=== PATIENT | male | born 1985 | race Two or more races ===

== ENCOUNTER 2019-04-01 08:32 | Emergency (ER) | payer OTHER ==
--- NOTE | 2019-04-01 08:54 | EDPHY ---
General Time Seen by Provider: 04/01/19 08:54 Narrative: CLINICAL IMPRESSION: Cough, URI ASSESSMENT/PLAN: Patient is a 33-year-old male with no significant medical history who presents to the emergency department with runny nose, congestion, cough and an isolated episode of scant reported blood in his sputum. Patient is afebrile, he is not toxic appearing and in no acute distress. His vital signs were reviewed, no findings to suggest sepsis. Chest x-ray with no evidence of consolidation or other cardiopulmonary abnormality. History and physical examination is most consistent with upper respiratory infection and cough. I suspect that his isolated subjective report of scant blood in his sputum was related to inflammation, I have a very low suspicion for other etiologies to include pulmonary embolus. Well's 1, low risk. Discussed laboratory studies and imaging, patient refuses. There is no evidence of significant sinusitis, meningitis, pneumonia or serious bacterial illness. As symptoms have been ongoing for a week, will treat with a Z-Ciro, he is established at [facility] and will call to schedule follow-up in 2-3 days. Conservative return precautions discussed. CHIEF COMPLAINT: Cough, blood tinged sputum HPI: Patient is a 33-year-old male with no significant medical history who presents to the emergency department with complaints of ongoing dry cough for 1 week, runny nose and congestion. Patient reports his baby 1st became ill with similar symptoms, became sick and now he has been sick for the last week. Patient reports that he was feeling mildly better, went for a run yesterday and felt winded at that time. Patient reports this morning he had a speck of blood in his sputum after he coughed twice, he has coughed since and had clear mucous. He reports some mild shortness of breath with exertion after his run yesterday, denies any shortness of breath now. Overall as appetite has been low however it he has been eating and drinking without problem. He denies any headache, neck stiffness, fever, chest pain or abdominal pain. Patient has no history of PE or DVT, no recent trauma or surgery. He denies any lower extremity swelling. ROS: Otherwise negative, please see HPI. PHYSICAL EXAM: General Appearance: Well-developed, well-appearing and in no acute distress. HEENT: Normocephalic, atraumatic. External ears normal, TM's with pearly monteiro reflex. Nares clear, mucosa pink. Oropharynx clear, uvula midline, no tonsillar enlargement or exudate. Respiratory: There are no retractions, lungs are clear to auscultation. Cardiac: Regular rate and rhythm, no murmurs or gallops. Gastrointestinal: Abdomen is soft, nontender, bowel sounds normal, no masses/ hernia, no rigidity, guarding or focal peritoneal findings. Skin: Warm, dry, no rashes. Neuro: Alert and oriented x3, Cranial nerves 2-12 grossly intact. No focal deficit. Psych: Normal mood, normal affect. No agitation. MEDICAL DECISION MAKING: Patient was seen independently. Secondary supervising physician at time of evaluation was Dr. Jim, she did not evaluate this patient. Diagnosis: URI with cough. Summary: Perc, positive hemoptysis. Well's with 1 point, considered low risk. Independent visualization of images, tracing, or specimens: Yes. Decision to obtain medical records or history from someone other than the patient: No Review / Summarize previous medical records: Not available Discussed patient with another provider: Yes, Dr. iJm Patient Progress: Stable, discharge. - History Smoking Status: Never smoked - Objective Vital Signs: Initial Vital Signs Heart Rate 93 04/01/19 08:40 Respiratory Rate 14 04/01/19 08:40 Blood Pressure 150/98 H 04/01/19 08:40 O2 Sat (%) 100 04/01/19 08:40 O2 Delivery Mode Room Air Allergies/Adverse Reactions: No Known Allergies Allergy (Unverified 04/01/19 08:40) Home Medications: Medication Instructions Recorded Azithromycin 250 mg PO DAILY #6 tablet 04/01/19 Departure - Departure Disposition: Home, Routine, Self-Care Clinical Impression: URI with cough and congestion Condition: Good Instructions: Upper Respiratory Infection (ED) Additional Instructions: DISCHARGE INSTRUCTIONS FROM YOUR PROVIDER Thank you for visiting our emergency department today. Rest, push non-diuretic, non-caffeinated fluids, consume a healthy diet, all to help support your immune system fight infection. Consider running a coolmist humidifier in the bedroom. Consider warm salt water gargles for sore throat. Consider over the counter saline nasal washes ie: Neilmed sinus rinse, [place] or [place]. Consider over the counter Mucinex for congestion and/or cough as directed. Take your antibiotics as prescribed. For pain control: You may take Tylenol, I recommend 500-1000 mg every 6-8 hours as needed. Take with food and a full glass of water. Stop taking if this is upsetting you stomach. Do not exceed 4000 mg in a 24 hr period. You may also take ibuprofen, recommend 400 mg every 6 hr. Take with food and a full glass of water. Stop taking if this upsets your stomach. Do not exceed 2400 mg in a 24 hr period. Schedule a follow-up appointment with your primary care physician in the next 2- 3 days for re-evaluation, sooner for any new concerns. Return for high fever, shaking chills, severe headache, facial redness or swelling, drainage from your ears, difficulty breathing or swallowing, throat tightness, drooling, change in voice, inability to open your mouth normally, severe neck pain, neck stiffness, shortness of breath, wheezing, noisy breathing , coughing up blood, chest pain, vomiting, diarrhea, bloody stools, decreased urine output or other concerns for dehydration, bloody urine, rash, dizziness, weakness, fainting, or for any other new, worsening or worrisome symptoms. People present with illnesses and injuries in different ways, and it is always possible that we have missed something. Again, thank you for choosing our emergency department. We hope that you feel better. Referrals: [facility] [Clinic] - 2-3 days, call for appt. NONE *PRIMARY CARE P,. [Primary Care Provider] - As per Instructions Prescriptions: Azithromycin 250 mg PO DAILY #6 tablet
[2019-04-01 09:50] VITALS: BP 127/97
== END 2019-04-01 09:54 | disposition home or self-care (01) ==
DX: J06.9 Acute upper respiratory infection, unspecified (principal); R05 Cough